=== PATIENT | female | born 2000 | race Caucasian/White ===

== ENCOUNTER 2022-04-16 17:25 | Emergency (ER) | payer OTHER ==
[~2022-04-16] VITALS: Ht 149.9 cm; Wt 56.7 kg
== END 2022-04-16 19:59 | disposition home or self-care (01) ==
LOC: ER 17:25
DX: K52.9 Noninfective gastroenteritis and colitis, unspecified (principal); Z88.6 Allergy status to analgesic agent; Z88.0 Allergy status to penicillin; Z88.8 Allergy status to other drugs, medicaments and biological substances